=== PATIENT | male | born 1945 | race Caucasian/White ===

== ENCOUNTER → 2018-01-05 | Outpatient (CLI) | payer MEDICARE, OTHER ==
[~2018-01-05] MED LIST: ACETAMINOPHEN325 M1 PO; ADULT LOW DOSE81 MG; ALLOPURINOL 30300 M1 PO; AMIGESIC500 MG PO; ASPIRIN EC81 M1 PO; ATENOLOL 25 MG25 M1 PO; CLONIDINE0.1 PO; COMBIVENT INH; COUMADIN 5 MG TA5 M1 PO; COZAAR100 MG PO; DIOVAN160 MG PO; FENOFIBRATE160 MG PO; FERREX 150150 MG PO; FISH OIL 1,0001 EAC5 PO; HYDROCHLOROTHIA25 M1 PO; HYTRIN 1 MG CAP1 MG PO; KLOR-CON 1010 MEQ PO; LACTULOSE20 GM/30 M PO; LASIX 40 MG TAB40 M2 PO; LEVOTHYROXIN0.025 MG PO; NEURONTIN 300300 M1 PO; ONE DAILY MULT1 EAC2 PO; PACERONE 200 M200 M1 PO; PHISOHEX; POTASSIUM20 PO; SENOKOT-S1 TA1 PO; SERTRALINE HCL100 MG PO; TAMSULOSIN HCL0.4 M1 PO; ULTRAM 50MG TAB50 MG PO; VITAMIN D35000 UNI1 PO; XARELTO10 M1 PO
== END ==
LOC: M.RAD 15:55
DX: I51.7 Cardiomegaly (principal); R09.89 Other specified symptoms and signs involving the circulatory and respiratory systems; I50.31 Acute diastolic (congestive) heart failure

== ENCOUNTER 2021-02-10 12:50 | Inpatient (IN) | payer MEDICARE, OTHER ==
[~2021-02-10] VITALS: Ht 175.3 cm; Wt 145.6 kg
[~2021-02-10 12:50] MED LIST changes: -LEVOTHYROXIN0.025 MG PO; +SENOKOT-S TABL1 EACH PO; -SENOKOT-S1 TA1 PO; +SYNTHROID25 MC1 PO
[2021-02-10 13:10] VITALS: BP 120/38
[2021-02-10] MEDS ORDERED: DIOVAN320 MG PO (13:14)
[2021-02-10] MEDS ORDERED: SPIRONOLACTONE25 MG PO (13:14)
[2021-02-10] MEDS ORDERED: DEMADEX20 MG PO (13:14)
[2021-02-10] MEDS ORDERED: CARVEDILOL25 MG PO (13:14)
[2021-02-10 13:46] LABS: ABSOLUTE BASOPHILS 0.1 thou/uL (0.0-0.2); ABSOLUTE EOSINOPHILS 0.1 thou/uL (0.0-0.7); ABSOLUTE LYMPHOCYTES 1.5 thou/uL (0.8-5.3); ABSOLUTE MONOCYTES 0.5 thou/uL (0.0-1.2); ABSOLUTE NEUTROPHILS 4.6 thou/uL (1.6-8.1); BASOPHILS 0.8 %; EOSINOPHILS 2.1 %; HEMATOCRIT 29.2 % (42.0-52.0); HEMOGLOBIN 9.4 gm/dL (14.0-18.0); MCH 29.9 pg (26.0-34.0); MCHC 32.2 g/dL (28.0-37.0); MCV 92.9 fL (80.0-100.0); MONOCYTES 7.2 %; MPV 7.8 fl. (7.2-11.1); NUCLEATED RBCS 0 /100WBC; PLATELET COUNT* 213 thou/uL (150-400); POLYS 67.9 %; RBC 3.14 mil/uL (4.50-6.00); RDW-CV 18.4 % (10.5-14.5); WBC 6.8 thou/uL (4.0-11.0)
[2021-02-10 13:52] LABS: APTT 44.8 Seconds (25.0-31.3); INR 4.1; PROTIME 39.8 Seconds (9.20-11.50)
[2021-02-10 13:57] LABS: ALBUMIN 3.9 g/dL (3.4-5.0); CALCIUM 8.9 mg/dL (8.5-10.1); POTASSIUM 4.8 mmol/L (3.5-5.1); TOTAL BILIRUBIN 1.7 mg/dL (<0.1-1.0); TOTAL PROTEIN 7.4 g/dL (6.4-8.2)
[2021-02-10 17:15] VITALS: BP 133/66
[2021-02-10 18:36] VITALS: BP 126/57
[2021-02-10 20:15] VITALS: BP 126/55
[2021-02-11 03:54] LABS: HEMOGLOBIN 8.6 gm/dL (14.0-18.0); MCH 29.6 pg (26.0-34.0); MCHC 31.9 g/dL (28.0-37.0); MCV 92.8 fL (80.0-100.0); MPV 7.3 fl. (7.2-11.1); RBC 2.9 mil/uL (4.50-6.00); RDW-CV 18.6 % (10.5-14.5); WBC 7.3 thou/uL (4.0-11.0)
[2021-02-11 04:08] LABS: ALBUMIN 3.5 g/dL (3.4-5.0); CALCIUM 8.5 mg/dL (8.5-10.1); CREATININE 1.9 mg/dL (0.6-1.3); MAGNESIUM 2.5 mg/dL (1.8-2.4); POTASSIUM 4.5 mmol/L (3.5-5.1); TOTAL BILIRUBIN 1.7 mg/dL (<0.1-1.0); TOTAL PROTEIN 6.7 g/dL (6.4-8.2)
[2021-02-11 07:20] VITALS: BP 123/48
[2021-02-11 11:00] VITALS: BP 123/48
--- NOTE | 2021-02-11 13:06 | CON ---
[address] [address] CONSULTATION Name: BETTYEDOROTHY Aziza Room: [address] IN M.R.#: [id number] Admission: 02/10/21 Attend Phys: Hortensia Acosta MD Discharge: Date of : 49 Report #: [id number] THIS REPORT FOR: cc: Steve Vazquez MD, Anthony MD Blick, David R. MD [facility] ~ DOC #: [id number] cc: MD Jonah Vazquez MD [facility] DATE OF CONSULTATION: 02/11/2021 HISTORY OF PRESENT ILLNESS: The patient is a 75-year-old white male who I was asked to see in the hospital day after he was noted to have elevated INR. The patient has an extensive and complicated past medical history. He had previous aortic valve replacement using a tissue valve and single vessel bypass surgery using a left vein graft at [facility] in 2012. He has a history of atrial fibrillation and apparently was cardioverted [address] Vieira in the past. It was finally decided today for rate control and chronic anticoagulation. The patient recently has been followed by my partner, Dr. Matthew Colunga. He is morbidly obese, standing 5 feet 10 inch and weighing 321 pounds. He is not very active because of his large size. He does have chronic edema. Recently, his INR has been elevated. He takes Lasix for the edema and recently his creatinine was elevated. He is followed by Nephrology. Because of lab abnormalities, he was instructed to come to the hospital yesterday and be admitted. He recently fell and struck his left leg. He has a hematoma in the left thigh. However, he denies any other bleeding. He denies any chest pain, increased shortness of breath, palpitations, syncope, fever. PAST MEDICAL HISTORY: Significant for ankle surgery, shoulder surgery, nose surgery. He has a history of hypertension and dyslipidemia. CURRENT MEDICATIONS: Include allopurinol, aspirin, carvedilol, fenofibrate, Synthroid, Zoloft, Aldactone, Flomax, Hytrin, Demadex, Diovan, warfarin. ALLERGIES: HE HAS A PREVIOUS INTOLERANCE TO CODEINE AND TETRACYCLINE. FAMILY HISTORY: His father had bypass surgery. SOCIAL HISTORY: He is . He and his live in [place]. 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 No smoking, rarely drinks alcohol. REVIEW OF SYSTEMS: No history of stroke. He has sleep apnea, uses CPAP. No history of asthma, liver disease. He has chronic kidney disease, no cancer, [place] [address] CONSULTATION Name: DOROTHY WEN Room: [address] IN [facility]#: [id number] Admission: 02/10/21 Attend Phys: Hortensia Acosta MD Discharge: Date of : 49 Report #: [id number] chronic skin condition. No psychiatric issues. PHYSICAL EXAMINATION: GENERAL: Revealed an elderly male, lying in bed, appeared in no acute distress. VITAL SIGNS: He had a blood pressure of 120/60, pulse is 70. He was afebrile. HEENT: He was anicteric. Conjunctivae pink. Mucous membranes moist. NECK: Veins difficult to assess due to obesity. No radiating systolic murmur noted in the carotids. CHEST: Clear to auscultation. HEART: Irregular rhythm. Grade II systolic ejection murmur. ABDOMEN: Obese. EXTREMITIES: Had trace edema. SKIN: Cool and dry. NEUROLOGIC: Nonfocal. The patient had an ECG in the emergency room yesterday, interpretation is in [facility], although there is no copy in the chart review. Interpretation said the patient was in atrial fibrillation with diffuse T-wave changes. The patient's last echocardiogram was a year ago in 01/2020 that showed ejection fraction of 60% with a prosthesis in the aortic position, dilated left atrium, mild stenosis of the prosthesis, mild mitral regurgitation. His workup in the emergency room yesterday, he had a portable chest x-ray that showed cardiomegaly, atelectasis. He actually had a CT scan of the chest that showed no pulmonary embolus or dissection. LABORATORY DATA: Sodium 140, creatinine 0.8, troponin 0.06. BNP 39. His T4 that was free in 05/2020 was 1.4. INR yesterday was only 1.1. White blood cell count 6.4, hemoglobin 15.2. His COVID antigen stat test was negative. ASSESSMENT AND RECOMMENDATIONS: 1. Atrial fibrillation. I will continue chronic anticoagulation. Maintain INR 2-3. 2. Previous coronary bypass surgery. Since the patient is on warfarin, I would not recommend aspirin. 3. Venous stasis. The patient is on diuretics. 4. Morbid obesity. 5. Sleep apnea. The patient is on CPAP. 6. Previous aortic valve replacement using a tissue valve. Noted to have mild stenosis. 7. Dyslipidemia. The patient is on fenofibrate for high triglycerides. Jonah Lewis MD [facility] DRSahil/MNJair [address] [address] CONSULTATION Name: CORINNASOFIADOROTHY Room: [address] IN .R.#: [id number] Admission: 02/10/21 Attend Phys: Hortensia Acosta MD Discharge: Date of : 49 Report #: [id number] <ELECTRONICALLY SIGNED> By: Jonah Lewis MD, FACC 02/11/21 [id number] Lewis MD, FAC /nt
[2021-02-11 16:38] VITALS: BP 107/45
[2021-02-11 20:00] VITALS: BP 118/55
[2021-02-12 04:35] LABS: HEMATOCRIT 26.8 % (42.0-52.0); HEMOGLOBIN 8.6 gm/dL (14.0-18.0); MCH 29.9 pg (26.0-34.0); MCHC 32.2 g/dL (28.0-37.0); MCV 92.8 fL (80.0-100.0); MPV 7.6 fl. (7.2-11.1); RBC 2.89 mil/uL (4.50-6.00); RDW-CV 18.8 % (10.5-14.5)
[2021-02-12 04:43] LABS: CALCIUM 8.4 mg/dL (8.5-10.1); CREATININE 1.9 mg/dL (0.6-1.3); POTASSIUM 4.2 mmol/L (3.5-5.1)
[2021-02-12 04:45] LABS: PROTIME 23.5 Seconds (9.20-11.50)
[2021-02-12 05:35] LABS: INR 2.3
[2021-02-12 08:00] VITALS: BP 129/50
[2021-02-12 10:38] VITALS: BP 123/48
== END 2021-02-12 11:30 | disposition home or self-care (01) | DRG 811 ==
LOC: M.ERS 12:50 → M.ORTHSURG 15:40 → M.TBA-ER 15:40 → M.ORTHSURG 17:20
PROVIDERS: Family Medicine; Nurse Practitioner Family; ADMIT Internal Medicine; ATTEND Internal Medicine
PROC: 5A09357 Assistance with Respiratory Ventilation, Less than 24 Consecutive Hours, Continuous Positive Airway Pressure (ICD-10-PCS; principal; 2021-02-10)
DX: D62 Acute posthemorrhagic anemia (principal); I50.33 Acute on chronic diastolic (congestive) heart failure; N17.9 Acute kidney failure, unspecified; Z68.42 Body mass index [BMI] 45.0-49.9, adult; I50.30 Unspecified diastolic (congestive) heart failure; I13.0 Hypertensive heart and chronic kidney disease with heart failure and stage 1 through stage 4 chronic kidney disease, or unspecified chronic kidney disease; Z20.822 Contact with and (suspected) exposure to COVID-19; I25.10 Atherosclerotic heart disease of native coronary artery without angina pectoris; I48.91 Unspecified atrial fibrillation; T45.515A Adverse effect of anticoagulants, initial encounter; E78.5 Hyperlipidemia, unspecified; E03.9 Hypothyroidism, unspecified; F32.9 Major depressive disorder, single episode, unspecified; N18.30 Chronic kidney disease, stage 3 unspecified; S70.12XA Contusion of left thigh, initial encounter; M71.38 Other bursal cyst, other site; I87.8 Other specified disorders of veins; E66.01 Morbid (severe) obesity due to excess calories; S30.1XXA Contusion of abdominal wall, initial encounter; I71.4 Abdominal aortic aneurysm, without rupture; G47.33 Obstructive sleep apnea (adult) (pediatric); Z88.6 Allergy status to analgesic agent; Z88.1 Allergy status to other antibiotic agents; Z82.49 Family history of ischemic heart disease and other diseases of the circulatory system; Z95.1 Presence of aortocoronary bypass graft; Z95.2 Presence of prosthetic heart valve